=== PATIENT | female | born 1980 | race Two or more races ===

== ENCOUNTER 2020-11-02 06:00 | Inpatient (IN) | payer OTHER ==
[~2020-11-02] VITALS: Ht 165.1 cm; Wt 86.2 kg
[2020-11-03] MEDS ORDERED: PERCOCET 5-3251 EACH PO (07:40)
== END 2020-11-03 12:36 | disposition home or self-care (01) | DRG 743 ==
LOC: CIR.AMB 06:00 → O/R 15:45 → OB/GYN 15:45
PROVIDERS: ADMIT Obstetrics & Gynecology Gynecology; ATTEND Obstetrics & Gynecology Gynecology
PROC: 0UB74ZZ Excision of Bilateral Fallopian Tubes, Percutaneous Endoscopic Approach (ICD-10-PCS; 2020-11-02)
PROC: 0UT94ZZ Resection of Uterus, Percutaneous Endoscopic Approach (ICD-10-PCS; principal; 2020-11-02 07:00)
DX: N72 Inflammatory disease of cervix uteri (principal); D25.1 Intramural leiomyoma of uterus; D25.0 Submucous leiomyoma of uterus; N83.8 Other noninflammatory disorders of ovary, fallopian tube and broad ligament; N92.1 Excessive and frequent menstruation with irregular cycle